=== PATIENT | male | born 1960 | race Caucasian/White ===

== ENCOUNTER 2018-08-23 12:24 | Emergency (ER) | payer BC ==
--- NOTE | 2018-08-23 12:31 | UC ---
Respiratory Complaint HPI - HPI Summary HPI Summary: Patient is a 58 year old , who present today to the urgent care with sinus pressure and congestion for past 2 weeks . He reports that he had sore throat and upper respiratory symptoms prior to onset of this 2 weeks ago and his daughter is also having some upper respiratory symptoms. He tried Christina pot last week without any relief. sinus congestion/pressure with occasional bloody nose x 1 month. Tried nedi pot last week with no relief. Denies any fever. Unsure of any postnasal drip that he does have frontal headaches. He points to the frontal and maxillary area where he feels pressure Denies any fever, chills, cough chest pain or shortness of breath . Denies any abdominal pain , nausea or vomiting , diarrhea or constipation. - History of Current Complaint Stated Complaint: SINUS COMPLAINT Time Seen by Provider: 08/23/18 12:30 Hx Obtained From: Patient - Allergies/Home Medications Allergies/Adverse Reactions: Allergies Allergy/AdvReac Type Severity Reaction Status Date / Time No Known Allergies Allergy Verified 08/23/18 12:37 PMH/Surg Hx/FS Hx/Imm Hx - Additional Past Medical History Additional PMH: Past Medical History : None Past Surgical History: No Past History of Procedure Family History : Noncontributory Social History : Occasional alcohol, non smoker, no drug use. Works in [employer] in [place] Previously Healthy: Yes Review of Systems All Other Systems Reviewed And Are Negative: Yes Constitutional: Positive: Negative Skin: Positive: Negative Eyes: Positive: Negative ENT: Positive: Sinus Congestion, Sinus Pain/Tenderness. Negative: Sore Throat, Ear Ache Respiratory: Positive: Negative. Negative: Cough Cardiovascular: Positive: Negative Gastrointestinal: Positive: Negative Genitourinary: Positive: Negative Motor: Positive: Negative Neurovascular: Positive: Negative Musculoskeletal: Positive: Negative Neurological: Positive: Negative Psychological: Positive: Negative Is Patient Immunocompromised?: No Physical Exam - Summary Physical Exam Summary: Physical Exam: Const: Appears well. No signs of apparent distress present. Alert and oriented x 3. Musculo: Walks with a normal gait. Head/Face: Atraumatic, normocephalic on inspection. Eyes: EOMI and PERRLA in both eyes. Conjunctivae clear. No discharge noted ENT: Hearing normal, TM normal appearing bilaterally No significant tenderness to palpation on maxillary and frontal sinus. No pharyngeal erythema or exudates . some cobblestoning noted on posterior pharyngeal wall. Uvula is midline. there is non tender anterior cervical or submandibular lymphadenopathy noted. Respiratory: Respirations are unlabored. Lungs clear to auscultation bilaterally, no wheezing , rhonchi or rales noted . CVS: Regular rate and Rhythm, S1S2 normal , no murmurs identified. Extremities: Peripheral circulation is grossly normal. Pulses 2+ Abdomen : Soft non tender , nondistended , Bowel sounds present . No guarding , rebound tenderness or rigidity noted. Skin: No lesions or rash located on the upper extremities or on the lower extremities. Neuro: Cranial nerves II to XII intact, motor and sensory intact. DTR Intact bilaterally. Mood is normal. Affect is normal. Triage Information Reviewed: Yes Vital Signs Reviewed: Yes Respiratory Course/Dx - Course Course Of Treatment: During the visit today, we discussed the findings and his symptoms are consistent with sinusitis but physical exam is not much significant . There is a possibility that it could be allergies leading to congestion. I will try antiallergic and decongestant along with the antibiotics. I will prescribe the medication to the pharmacy . Patient expressed understanding . - Differential Dx/Diagnosis Provider Diagnosis: Sinusitis, Environmental allergies Discharge - Sign-Out/Discharge Documenting (check all that apply): Patient Departure All imaging exams completed and their final reports reviewed: No Studies - Discharge Plan Condition: Stable Disposition: HOME Prescriptions: Amoxicillin/Clavulanate TAB* [Augmentin TAB 875*] 875 mg PO BID 14 Days #28 tab Loratadine/Pseudoephedrine [Claritin-D 24 Hour Tablet] 1 each PO DAILY PRN 14 Days #14 tab.er.24h PRN Reason: Congestion Patient Education Materials: Sinusitis (ED), Allergies (ED) Referrals: Raciel Grace MD [Primary Care Provider] - 1 Week Additional Instructions: Please start taking the medication as prescribed to the pharmacy . Follow up with your primary care doctor in 1 week if no better Return to Urgent care / ER if symptoms get worse. - Billing Disposition and Condition Condition: STABLE Disposition: Home
[2018-08-23 12:40] VITALS: BP 114/79
== END 2018-08-23 12:58 | disposition home or self-care (01) ==
LOC: UCCORT 12:24
DX: J32.9 Chronic sinusitis, unspecified (principal); T78.49XA Other allergy, initial encounter
CPT/HCPCS: 99202; G0463